=== PATIENT | female | born 1980 | race African-American/Black ===

== ENCOUNTER 2017-10-31 16:59 | Inpatient (IN) | payer BC, OTHER ==
[~2017-10-31] VITALS: Ht 182.9 cm; Wt 93.0 kg
[2017-10-31] MEDS ORDERED: DEXT 5%/LR + PITOCIN 20UNITS/L 1,000 ML IV SCH ×2 (17:04→20:30)
[2017-10-31] MEDS ORDERED: METHYLERGONOVINE MALEATE 0.2 MG/ML IM PRN ×2 (17:15→20:30)
[2017-10-31] MEDS ORDERED: LIDOCAINE HCL 1% 20ML VIAL (Pyxis) INJ INFIL SCH (17:15)
[2017-10-31] MEDS ORDERED: CARBOPROST TROMETHAMINE 250 MCG/ML AMPUL IM PRN (17:15)
[2017-10-31] MEDS ORDERED: BUTORPHANOL TARTRATE 2 MG/ML VIAL IV PRN (17:15)
[2017-10-31] MEDS ORDERED: PENICILLIN G POTASSIUM 5 MMU in DEXT 5% WATER 100 ML IV SCH (17:15)
[2017-10-31] MEDS ORDERED: NALOXONE HCL 0.4 MG/ML 1ML VIAL IM PRN (17:15)
[2017-10-31 17:46] LABS: CLARITY URINE CLEAR (CLEAR); COLOR URINE YELLOW (YELLOW); KETONES URINE NEGATIVE (NEGATIVE); LEUKOCYTE ESTERASE URINE NEGATIVE (NEGATIVE); NITRITE URINE NEGATIVE (NEGATIVE); OCCULT BLOOD URINE TRACE (NEGATIVE); PH URINE 6.5 (4.5-8.0); PROTEIN URINE NEGATIVE (NEGATIVE); SPECIFIC GRAVITY URINE 1.019 (1.005-1.030); UROBILINOGEN URINE 0.2 E.U./dL (0.2-1.0)
[2017-10-31 17:50] LABS: BASOPHILS % 0.3 % (0.0-2.0); EOSINOPHILS % 0.5 % (0.0-5.0); HEMATOCRIT. 33.5 % (36.0-48.0); HEMOGLOBIN. 11.4 g/dL (12.0-16.0); LYMPHOCYTES % 29.5 % (20.0-50.0); MEAN CORPUSCULAR HEMOGLOBIN 30.2 pg (28.0-32.0); MEAN CORPUSCULAR VOLUME 88.8 fL (81.0-99.0); MEAN PLATELET VOLUME 7.9 fl (7.4-10.4); MONOCYTES % 7.8 % (2.0-8.0); NEUTROPHILS % 61.9 % (40.0-76.0); PLATELET 289 x1000/uL (130-400); RED BLOOD CELL COUNT 3.77 mill/uL (4.2-5.4)
[2017-10-31] MEDS ORDERED: PNV1TABL76 PO (17:54)
[2017-10-31] MEDS ORDERED: FOLI-43 PO (17:55)
[2017-10-31 17:57] LABS: INR 0.9; PARTIAL THROMBOPLASTIN TIME 24.3 sec (23.4-31.0); PROTHROMBIN TIME 9.5 sec (9.4-11.6)
[2017-10-31] MEDS: LACTATED RINGERS 1,000 ML IV SCH ×2 (18:12→18:13)
[2017-10-31 18:30] LABS: *AMPHETAMINES SCREEN URINE NEGATIVE (NEGATIVE); *BARBITURATES SCREEN URINE NEGATIVE (NEGATIVE); *BENZODIAZEPINES SCREEN URINE NEGATIVE (NEGATIVE); *COCAINE SCREEN URINE NEGATIVE (NEGATIVE)
[2017-10-31 18:31] LABS: CANNABINOID URINE SCREEN NEGATIVE (NEGATIVE); METHADONE URINE SCREEN NEGATIVE (NEGATIVE); OPIATES URINE SCREEN NEGATIVE (NEGATIVE); PHENCYCLIDINE URINE SCREEN NEGATIVE (NEGATIVE)
[2017-10-31 18:55] LABS: HEPATITIS B SURFACE ANTIGEN NEGATIVE
[2017-10-31] MEDS ORDERED: RHO(D) IMMUNE GLOBULIN 300 MCG/SYR IM PRN (20:30)
[2017-10-31] MEDS ORDERED: DIPHENHYDRAMINE 25MG CAPSULE PO PRN (20:30)
[2017-10-31] MEDS ORDERED: LANOLIN OINT 0.25 GM TUBE TOP PRN (20:30)
[2017-10-31] MEDS ORDERED: IBUPROFEN 400MG TABLET PO PRN (20:30)
[2017-10-31] MEDS ORDERED: PENICILLIN G POTASSIUM 2.5 MMU in DEXTROSE 5% WATER 50 ML IV SCH (21:30)
[2017-10-31 21:40] VITALS: BP 129/74
[2017-10-31 21:45] VITALS: BP 123/70
[2017-10-31] MEDS: IBUPROFEN 800MG TABLET PO PRN (22:11)
[2017-11-01] VITALS: BP 130/72
[2017-11-01 04:00] VITALS: BP 132/74
[2017-11-01] MEDS: PRENATAL VIT/FE FUMARATE/FA TABLET PO SCH (08:18)
[2017-11-01] MEDS: IBUPROFEN 800MG TABLET PO PRN ×3 (08:18→20:57)
[2017-11-01 08:30] VITALS: BP 113/74
[2017-11-01 11:30] LABS: BASOPHILS % 0.2 % (0.0-2.0); EOSINOPHILS % 0.1 % (0.0-5.0); HEMATOCRIT. 34.5 % (36.0-48.0); HEMOGLOBIN. 11.5 g/dL (12.0-16.0); LYMPHOCYTES % 12.3 % (20.0-50.0); MEAN CORPUSCULAR HEMOGLOBIN 30.1 pg (28.0-32.0); MEAN CORPUSCULAR VOLUME 90.2 fL (81.0-99.0); MEAN PLATELET VOLUME 8.1 fl (7.4-10.4); NEUTROPHILS % 81.4 % (40.0-76.0); PLATELET 268 x1000/uL (130-400); RED BLOOD CELL COUNT 3.82 mill/uL (4.2-5.4); RED CELL DISTRIBUTION WIDTH 14.1 % (11.6-14.6)
[2017-11-01 16:01] VITALS: BP 119/75
[2017-11-01 22:00] VITALS: BP 124/77
[2017-11-02 06:00] VITALS: BP 119/75
[2017-11-02 08:00] VITALS: BP 125/75
[2017-11-02] MEDS: IBUPROFEN 800MG TABLET PO PRN (08:11)
[2017-11-02] MEDS: PRENATAL VIT/FE FUMARATE/FA TABLET PO SCH (08:11)
[2017-11-02] MEDS ORDERED: TETANUS, DIPHTHERIA, PERTUSSIS VAC/PF 0.5ML (>7YR OLD) IM ONE (10:00)
== END 2017-11-02 13:30 | disposition home or self-care (01) | DRG 775 ==
LOC: OBSVTOIN 16:59 → L&D 16:59 → 7EST PP/OB 21:40
PROVIDERS: ADMIT Obstetrics & Gynecology; ATTEND Obstetrics & Gynecology
PROC: 10E0XZZ Delivery of Products of Conception, External Approach (ICD-10-PCS; principal; 2017-10-31 18:40)
DX: O99.02 Anemia complicating childbirth (principal); D62 Acute posthemorrhagic anemia; Z37.0 Single live birth; Z3A.39 39 weeks gestation of pregnancy
CPT/HCPCS: 36415; 80305; 81003; 85025; 85610; 85730; 86592; 86703; 86762; 86850; 86900; 87340; 90715; J0595; J2540; J2590; J3490; J7060; J7120